=== PATIENT | male | born 1985 | race Caucasian/White ===

== ENCOUNTER 2016-08-24 18:49 | Emergency (ER) | payer SELFPAY ==
[2016-08-24] MEDS ORDERED: AMMONIA INHALANTS 10 AMPUL/BOX IH ONE (18:58)
[2016-08-24] MEDS ORDERED: NORMAL SALINE 1000 ML 1,000 ML IV ONE (19:00)
--- NOTE | 2016-08-24 19:15 | ER Document Report ---
ED General - General Chief Complaint: Unresponsive Stated Complaint: UNRESPONSIVE Mode of Arrival: Medic Information source: Emergency Med Personnel Cannot obtain history due to: Altered mental status Notes: This is a 31-year-old male who presents via EMS for unresponsiveness. EMS was called out for unresponsive patient. When they arrived patient was responsive only to painful stimuli. Bystanders state that he had been drinking alcohol. Patient apparently has a history of alcohol abuse. Bystanders state that he slumped over and became unresponsive. There is no witnessed seizure activity. There was no trauma. EMS reports that he began arousing slightly in route and actually did pull out his IV prior to their arrival to the ER. No further history available at this time. TRAVEL OUTSIDE OF THE [place] IN LAST 30 DAYS: No - Related Data Allergies/Adverse Reactions: No Known Allergies Allergy (Unverified 10/02/11 20:41) Past Medical History - General Information source: Emergency Med Personnel Cannot obtain history due to: Altered mental status - Social History Smoking Status: Unknown if Ever Smoked Family History: None - Immunizations Hx Diphtheria, Pertussis, Tetanus Vaccination: Yes Review of Systems - Review of Systems -: Yes ROS unobtainable due to patient's medical condition Physical Exam - Vital signs Vitals: Pulse Ox 97 08/24/16 19:01 - Notes Notes: PHYSICAL EXAMINATION: GENERAL: well nourished well developed adult male, responsive to sternal rub and to ammonia capsule inhalant. Pt smells of alcohol HEAD: Atraumatic, normocephalic. EYES: Left pupil slightly larger than right, both are briskly reactive to light ENT: nares patent, oropharynx clear without exudates. Moist mucous membranes. NECK: Normal range of motion, supple without lymphadenopathy LUNGS: Breath sounds clear to auscultation bilaterally and equal. No wheezes rales or rhonchi. HEART: Regular rate and rhythm without murmurs ABDOMEN: Soft, nontender, normoactive bowel sounds. No masses appreciated. EXTREMITIES: No edema, no evidence of trauma, pulses intact NEUROLOGICAL: Pt responsive to sternal rub. He does have a gag reflex and is protecting his airway. SKIN: Warm, Dry, normal turgor, no rashes or lesions noted. Course - Re-evaluation Re-evalutation: 08/24/16 19:58 Patient reexamined at this point. He is awake and conversant. He does seem somewhat confused. He states he does not remember what happened today or how he got here to the ER. He does admit to drinking alcohol today but he cannot remember how much. He denies any drug use or substance use. He denies any recent fevers or chills or illnesses. He denies any current pain. Specifically he denies headache chest pain abdominal pain. He is unable to tell me today's date and he at times he is slow to answer questions. Family is present and they report that he has been drinking heavily today. 08/24/16 Patient is alert and conversant, ambulating without difficulty, pleasant and cooperative with interview. He states he would like to go home to rest. He is alert and oriented x4 and denies SI/HI. He states that he does drink a few beers or some liquor daily (for the past several months) but states that he is unsure why he drank so much today. He is remorseful. He has supportive family present, including his and parents. He denies any history of withdrawal or seizures or DT's. [facility]. We discussed counseling options and I provided a list of AA meetings in the area and strongly encouraged his attendance. He will be watched by family members tonight and is stable for discharge. Return precautions discussed and questions answered. - Vital Signs Vital signs: Temp Pulse Resp BP Pulse Ox 15 137/85 H 98 08/24/16 22:01 08/24/16 22:01 08/24/16 22:01 - Laboratory Result Diagrams: 08/24/16 18:55 08/24/16 18:55 Laboratory results interpreted by me: 08/24/16 08/24/16 08/24/16 18:55 18:55 20:05 RDW 14.3 H Sodium 152.4 H Chloride 112 H Carbon Dioxide 21 L AST 67 H ALT 89 H Urine Blood MODERATE H Salicylates < 1.0 L Acetaminophen < 10 L Serum Alcohol 462 H* - Diagnostic Test Radiology reviewed: Reports reviewed Discharge - Discharge Clinical Impression: Hypernatremia Acute alcohol intoxication Qualifiers: Complication of substance-induced condition: with unspecified complication Qualified Code(s): F10.129 - Alcohol abuse with intoxication, unspecified Condition: Stable Disposition: HOME, SELF-CARE Additional Instructions: ACUTE ALCOHOL INTOXICATION and ALCOHOL ABUSE: Your evaluation revealed very high levels of alcohol. You can from drinking a large amount of alcohol rapidly! Further, there's the risk of falls , traffic accidents, and fights. A high portion (about 50 percent) of the serious injuries seen in hospital emergency rooms are caused by alcohol. Alcohol overdosage is usually due to an underlying emotional or psychiatric problem. You may benefit from counselling. If "binge" drinking is an ongoing problem for you, or if you drink ANY AMOUNT of alcohol EVERY day, you most likely have a tendency to alcoholism. You should avoid alcohol totally. We can refer you for treatment. Persons with alcohol problems are often also prone to other addictions -- you should discuss any use of medications or drugs with the doctor. You should be watched at home for the next several hours by someone who has not been drinking. Get extra fluids for the next 24 hours. Call the doctor if there is repeated vomiting, increasing headache, decreasing level of alertness, or any other worsening. FOR THE OBSERVER: Observe the patient for the next 24 hours and call or go to the hospital if any of the following are noted: prolonged or repeated vomiting, difficulty in arousing, convulsions (seizures or fits), fever, persistent cough, breathing that is too slow or too rapid, or confused or bizarre behavior. If a counselling visit has been arranged, make sure the patient attends. Call the physician or poison control if you have questions. FOLLOW-UP CARE: If you have been referred to a physician for follow-up care, call the physician s office for an appointment as you were instructed or within the next two days. If you experience worsening or a significant change in your symptoms, notify the physician immediately or return to the Emergency Department at any time for re-evaluation. As discussed, follow up with a primary care physician as soon as possible. A list of local AA meetings as well as outpatient counseling services has been provided to you as well. It is highly encouraged that you attend AA meetings for support with stopping your alcohol use. Return to the ER for any thoughts of hurting yourself or others, or any worsening symptoms as outlined above.
[2016-08-24 19:26] LABS: ABSOLUTE LYMPHOCYTES (AUTO) 2.2 10^3/uL (0.5-4.7); ABSOLUTE MONOCYTES (AUTO) 0.5 10^3/uL (0.1-1.4); ABSOLUTE NEUT (AUTO) 2.9 10^3/uL (1.7-8.2); BASOPHILS % (AUTO) 0.4 % (0-2); EOSINOPHILS % (AUTO) 0.8 % (0-6); HEMATOCRIT 46.4 % (37.9-51.0); HEMOGLOBIN 15.7 g/dL (13.5-17.0); HGB HCT DIFFERENCE 0.7; LYMPHOCYTES % (AUTO) 38.6 % (13-45); MEAN CORPUSCULAR HEMOGLOBIN 30.6 pg (27.0-33.4); MEAN CORPUSCULAR HGB CONC 33.8 g/dL (32.0-36.0); MEAN CORPUSCULAR VOLUME 91 fl (80-97); MONOCYTES % (AUTO) 9.5 % (3-13); RED BLOOD COUNT 5.12 10^6/uL (4.35-5.55); RED CELL DISTRIBUTION WIDTH 14.3 % (11.5-14.0); SEGMENTED NEUTROPHILS % (AUTO) 50.7 % (42-78); WHITE BLOOD COUNT 5.7 10^3/uL (4.0-10.5)
[2016-08-24 19:44] LABS: PROTHROMBIN TIME 12.6 SEC (11.4-15.4)
[2016-08-24 19:45] LABS: PARTIAL THROMBOPLASTIN TIME 25.8 SEC (23.5-35.8)
[2016-08-24 19:48] LABS: ALANINE AMINOTRANSFERASE 89 U/L (21-72); ALBUMIN 4.5 g/dL (3.5-5.0); ALKALINE PHOSPHATASE 60 U/L (38-126); ANION GAP 19 (5-19); ASPARTATE AMINO TRANSFERASE 67 U/L (17-59); BILIRUBIN,DIRECT 0.3 mg/dL (0.0-0.4); BILIRUBIN,TOTAL 0.4 mg/dL (0.2-1.3); BLOOD UREA NITROGEN 8 mg/dL (7-20); CARBON DIOXIDE 21 mmol/L (22-30); CHLORIDE 112 mmol/L (98-107); CREATINE KINASE 97 U/L (55-170); CREATININE RESULT 0.77 mg/dL (0.52-1.25); GLUCOSE 105 mg/dL (75-110); POTASSIUM 4.2 mmol/L (3.6-5.0); SODIUM 152.4 mmol/L (137-145); TOTAL PROTEIN 7.3 g/dL (6.3-8.2)
[2016-08-24 20:00] LABS: ALCOHOL 462 mg/dL (NONE DETECTED)
[2016-08-24 20:24] LABS: APPEARANCE,URINE CLEAR; BILIRUBIN,URINE NEGATIVE (NEGATIVE); GLUCOSE, URINE NEGATIVE (NEGATIVE); KETONES,URINE NEGATIVE (NEGATIVE); LEUKOCYTE ESTERASE,URINE NEGATIVE (NEGATIVE); NITRITE,URINE NEGATIVE (NEGATIVE); PROTEIN,URINE NEGATIVE (NEGATIVE); URINE SPECIFIC GRAVITY 1.003; UROBILINOGEN,URINE NEGATIVE mg/dL (<2.0)
[2016-08-24 20:43] LABS: URINE BARBITURATES SCREEN NEGATIVE; URINE METHADONE SCREEN NEGATIVE; URINE OPIATES LOW NEGATIVE; URINE PHENCYCLIDINE SCREEN NEGATIVE
[2016-08-24 22:56] VITALS: BP 137/85
--- NOTE | 2016-08-25 10:42 | EKG REPORT ---
SEVERITY:- NORMAL ECG - SINUS RHYTHM : Confirmed by: Mireya Michael 25-Aug-2016 10:41:27
== END 2016-08-24 23:05 | disposition home or self-care (01) ==
LOC: ER 18:49
DX: E87.0 Hyperosmolality and hypernatremia (principal); F10.129 Alcohol abuse with intoxication, unspecified; R41.82 Altered mental status, unspecified
CPT/HCPCS: 93005; 99285; 96360; 36415; 82553; 80307 ×4; 82550; 85025; 85610; 85730; 80053; 81001; 83605; 71010; 70450; 93010; J3490; J7030